=== PATIENT | female | born 1975 | race Caucasian/White ===

== ENCOUNTER 2022-07-25 19:11 | Emergency (ER) | payer BC, MEDICAID, SELFPAY ==
--- NOTE | ~2022-07-25 | XR_ITS ---
EXAMINATION: XR ankle RT min 3V, XR foot RT min 3V DATE: 07/25/2022 19:51 INDICATION: Anterior right ankle and dorsal and medial right foot pain post fall down stairs. TECHNIQUE: 1. Anteroposterior, mortise, additional oblique and lateral view of the right ankle were obtained. 2. Dorsoplantar, two oblique and lateral views of the right foot were obtained. COMPARISON: None. FINDINGS: Alignment of the right foot and ankle is normal. No fracture. Tiny heterotopic ossicle with corticate d margins without evident donor site is the tip the medial malleolus likely sequela of chronic deltoi d ligament sprain. Joint spaces are well maintained. No ankle joint effusion. Soft tissue swelling ab out the ankle greatest about the lateral malleolus. IMPRESSION: 1. No acute osseous abnormality. Reviewed, dictated and finalized at location A. IMPRESSION: 1. No acute osseous abnormality.
[2022-07-25 19:23] VITALS: BP 157/102; PULSE 98; RESP 16; TEMP 36.4; O2SAT 99
--- NOTE | 2022-07-25 19:52 | PC.NURSE ---
PT DECLINED WHEELCHAIR TO RADIOLOGY
--- NOTE | 2022-07-25 20:10 | ED.LOWEXIN ---
HPI - Extremity Injury (Lower) General Chief Complaint: Extremity Injury, Lower Stated Complaint: Fall Injury/Right Foot Injury Time Seen by Provider: 07/25/22 20:00 Source: patient, RN notes reviewed and old records reviewed Mode of arrival: ambulatory Limitations: no limitations History of Present Illness HPI Narrative: 46 year old female who presents to [facility] care with complaints of rolling right foot when going up steps and then falling foreward last night. Patient reports that she has pain to bilateral ankle region and also to medial aspect of her right foot.Patient has swelling to the medial aspect of her right foot and also lateral ankle region. Patient states that pain is sharp and dull rates her pain 5/10.described as sharp and dull with patient reporting that she has been taking Ibuprofen, elevating her right ankle and foot and applying ice. MD complaint: ankle injury, foot injury and fall Onset (ago): day(s) (last evening) Injury: Right: ankle and foot Severity scale (1-10): 5 Treatments prior to arrival: cold therapy, NSAIDS and other (elevation) Related Data Home Medications Medication Instructions Recorded Confirmed No Home Medications 07/25/22 07/25/22 Allergies Allergy/AdvReac Type Severity Reaction Status Date / Time Penicillins Allergy Unknown Unknown Verified 07/25/22 19:37 Sulfa (Sulfonamide Allergy Unknown Redness of Verified 07/25/22 19:37 Antibiotics) Skin Review of Systems Review of Systems: CONSTITUTIONAL: Denies fever, chills, or sweats. EYES: Denies visual changes, redness, or discharge. ENT: Denies rhinorrhea, congestion, sore throat, or otalgia. CARDIOVASCULAR: Denies chest pain, palpitations, or edema. RESPIRATORY: Denies cough or dyspnea. GASTROINTESTINAL: Denies abdominal pain, nausea, vomiting, or diarrhea. GENITOURINARY: Denies dysuria or hematuria. SKIN: Denies rash or itching. MUSCULOSKELETAL: Denies back pain, positive for right foot and ankle joint pain, or myalgia. NEUROLOGIC: Denies headache, numbness, or weakness. PSYCHIATRIC: positive for anxiety or depression. All systems reviewed & are unremarkable except as noted in HPI and below PMFSH Past Medical History Medical History (Updated 07/29/22 @ 08:54 by Kinga Negron NP) Asthma MVP (mitral valve prolapse) Surgical History Surgical History (Updated 07/29/22 @ 08:56 by Kinga Negron NP) History of cholecystectomy History of tonsillectomy Social History Social History (Updated 07/29/22 @ 08:56 by Kinga Negron NP) Smoking status: Never smoker Alcohol intake: unknown Substance use type: does not use Living arrangements: with family Gender identity (if verbalized by the patient): Female Comments At time of signature agree with nursing documentation of past medical, surgical, social and family history, There is no relevant family history pertinent to presenting complaint. Exam Narrative: GENERAL: Well-appearing, well-nourished, and in no acute distress. HEAD: Normocephalic, atraumatic. EYES: PERRLA and EOMI. ENT: Nares clear, no rhinorrhea or epistaxis. Mucous membranes moist.RM's normal with fgood light reflex, throat pink with no lesions or swelling, no tonsils present NECK: Supple.no lymphadenopathy CHEST: Clear to auscultation. No respiratory distress.SAO2 99% on room air HEART: Regular rate and rhythm. No murmur heard. Normal peripheral pulses. ABDOMEN: Soft, nontender, nondistended, normal active bowel sounds. EXTREMITIES: Normal range of motion. No edema.Exception noted to pain to medial aspect of right foot and ankle with some swelling noted SKIN: Warm, dry, no rash. NEURO: No focal deficits. Alert and oriented x3. Course Course Level of Care: Express Care Visit Vital Signs Vital signs: Vital Signs Temperature 36.4 C 07/25/22 19:23 Pulse Rate 98 07/25/22 19:23 Respiratory Rate 16 07/25/22 19:23 Blood Pressure 157/102 H 07/25/22 19:23 Pulse Oximetry 99 09
== END 2022-07-25 20:25 | disposition home or self-care (01) ==
PROVIDERS: Emergency Provider Registered Nurse
DX: S93.401A Sprain of unspecified ligament of right ankle, initial encounter (principal); T14.90XA Injury, unspecified, initial encounter
CPT/HCPCS: 73610; 73630; 99213; G0463

== ENCOUNTER 2023-02-12 18:14 | Emergency (ER) | payer BC, MEDICAID, SELFPAY ==
[2023-02-12 18:20] VITALS: BP 156/107; PULSE 104; RESP 20; TEMP 37.2; O2SAT 100
--- NOTE | 2023-02-12 18:49 | ED.URI ---
HPI - URI/Sore Throat General Chief Complaint: Upper Respiratory Infection Stated Complaint: ear nose throat chest congestion Time Seen by Provider: 02/12/23 18:49 Source: patient, RN notes reviewed and old records reviewed Mode of arrival: ambulatory Limitations: no limitations History of Present Illness HPI Narrative: 47-year-old female who presents to [facility] with complaints of cough with congestion sore throat, nasal congestion for the past 3-4 days. Patient reports that she has been taking Claritin and OTC Ibuprofen for her symptoms, is unsure of any fevers,denies any chills or sweats. Patient reported that she has been coughing up some greenish tinged phlegm and some yellow nasal drainage. Patient reports history of asthma but does not have inhaler at home at this time,does not have PCP. Patient reports that she has had COVID vaccinations and she did take COVID home test which was negative. Patient reports that she has not had flu shot. 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 MD elicited complaint: cough, sore throat, rhinorrhea and nasal congestion Pertinent past history: asthma Onset (ago): day(s) (3-4) Description of mucous: yellow and green Able to tolerate fluids by mouth: Yes Treatments prior to arrival: other (Claritin and Ibuprofen) Related Data Home Medications Medication Instructions Recorded Confirmed albuterol sulfate 90 mcg/actuation inhalation 02/12/23 aerosol inhaler beclomethasone dipropionate 80 inhalation 02/12/23 mcg/actuation HFA breath activated aerosol (Qvar RediHaler) Allergies Allergy/AdvReac Type Severity Reaction Status Date / Time Penicillins Allergy Unknown Unknown Verified 07/25/22 19:37 Sulfa (Sulfonamide Allergy Unknown Redness of Verified 07/25/22 19:37 Antibiotics) Skin Review of Systems Review of Systems: CONSTITUTIONAL: Denies malaise, chills, sweats, or fever. EYES: Denies visual changes, redness, or discharge. ENT: Reports rhinorrhea, congestion, sinus pain, otalgia and sore throat. CARDIOVASCULAR: Denies chest pain, palpitations, or edema. RESPIRATORY: Reports cough.? Denies acute dyspnea. GASTROINTESTINAL: Denies abdominal pain, nausea, vomiting, diarrhea SKIN: Denies rash or itching. MUSCULOSKELETAL: Denies myalgia. NEUROLOGIC: Denies headache. All systems reviewed & are unremarkable except as noted in HPI and below PMFSH Past Medical History Medical History (Updated 02/12/23 @ 19:27 by Kinga Negron NP) Asthma MVP (mitral valve prolapse) Surgical History Surgical History (Updated 02/12/23 @ 19:27 by Kinga Negron NP) History of cholecystectomy History of endometrial ablation History of tonsillectomy Social History Social History (Updated 07/29/22 @ 08:56 by Kinga Negron NP) Smoking status: Never smoker Alcohol intake: unknown Substance use type: does not use Living arrangements: with family Gender identity (if verbalized by the patient): Female Comments At time of signature, agree with nursing past medical, surgical, social and family history. There is no relevant family history pertinent to the presenting complaint Exam Narrative: GENERAL: Well-appearing, well-nourished, and in no acute distress. HEAD: Normocephalic EYES: PERRLA, conjunctivae clear ENT: Nares clear, turbinates edematous and erythematous, clear discharge. Mucous membranes moist. TM pearly garcia with dull light reflex bilaterally; no tragal tenderness. Oropharynx erythematous without lesions. Tonsils not present and throat without exudate, no drooling, no hoarseness, no trismus, uvula midline. NECK: Supple. lymphadenopathy CHEST: Clear to auscultation, breath sounds equal. No wheezing, rhonchi, rales, or stridor. No respiratory distress, speaks in full sentences.harsh cough SAO2 100% on room air HEART: Regular rate and rhythm. No murmur heard. SKIN: Warm, dry, no rash.
== END 2023-02-12 19:12 | disposition home or self-care (01) ==
PROVIDERS: Emergency Provider Registered Nurse
DX: J06.9 Acute upper respiratory infection, unspecified (principal); R05.9 Cough, unspecified; J45.909 Unspecified asthma, uncomplicated; I34.1 Nonrheumatic mitral (valve) prolapse
CPT/HCPCS: 99213; G0463

== ENCOUNTER 2023-08-13 09:06 | Emergency (ER) | payer OTHER, BC, MEDICAID, SELFPAY ==
--- NOTE | 2023-08-13 09:11 | ED.URI ---
HPI - URI/Sore Throat General Chief Complaint: Upper Respiratory Infection Stated Complaint: congestion/cough Source: patient and RN notes reviewed Mode of arrival: ambulatory Limitations: no limitations History of Present Illness HPI Narrative: Patient is a 47-year-old female who presents to the [facility] with complaints of ongoing sinus pain and pressure along with nasal congestion for the past couple weeks. Patient states that she was seen for the symptoms by an urgent care and was prescribed a Z-Jeramie. She states that she has completed the Z-Jeramie without improvement of her symptoms. Patient also reports chest congestion. She has a frequent productive cough with yellow sputum. She denies chest pain or shortness of breath. Denies known fevers. She reports intermittent sore throat and generalized body aches. 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 Related Data Allergies Allergy/AdvReac Type Severity Reaction Status Date / Time Penicillins Allergy Unknown Unknown Verified 08/13/23 09:40 Sulfa (Sulfonamide Allergy Unknown Redness of Verified 08/13/23 09:40 Antibiotics) Skin Review of Systems Review of Systems: CONSTITUTIONAL: Denies fever, chills, or sweats. EYES: Denies visual changes, redness, or discharge. ENT: Denies otalgia but reports sore throat. Reports sinus pain and nasal congestion CARDIOVASCULAR: Denies chest pain, palpitations, or edema. RESPIRATORY: Reports cough but denies dyspnea. GASTROINTESTINAL: Denies abdominal pain, nausea, vomiting, or diarrhea. GENITOURINARY: Denies dysuria or hematuria. SKIN: Denies rash or itching. MUSCULOSKELETAL: Denies back pain, joint pain, or myalgia. NEUROLOGIC: Denies headache, numbness, or weakness. Pertinent positives per HPI. [facility] Past Medical History Medical History Asthma MVP (mitral valve prolapse) Surgical History Surgical History History of cholecystectomy History of endometrial ablation History of tonsillectomy Social History Social History Smoking status: Never smoker Alcohol intake: unknown Substance use type: does not use Living arrangements: with family Gender identity (if verbalized by the patient): Female Comments At the time of my signature, I reviewed and agree with the nursing past medical, surgical, social, and family history. There is no relevant family history pertinent to the patient complaint. Exam Narrative: GENERAL: This is a well-nourished, well-developed patient, in no apparent distress. HEAD: normocephalic, atraumatic. EYES: Sclera clear/white. Vision is grossly intact. EARS: External ears normal. Hearing grossly intact. NOSE: External nose normal. Moderate congestion. Sinus tenderness. THROAT: Mucous membranes moist, Oropharyngeal erythema without exudate or ulceration. NECK: Neck supple, non-tender without lymphadenopathy, masses or thyromegaly. CARDIOVASCULAR: Regular rate and rhythm without murmurs, gallops, or rubs. RESPIRATORY: Clear to auscultation. Breath sounds equal bilaterally. No wheezes, rales, or rhonchi. GASTROINTESTINAL: Abdomen soft, non-tender, nondistended. Bowel sounds are active. No hepato-splenomegaly, or palpable masses. No guarding. SKIN: warm, intact with no suspicious lesions or rash, good texture and turgor. NEURO: awake, alert, and oriented to person, place and time. There were no obvious focal neurologic abnormalities. Course Course Level of Care: Express Care Visit Vital Signs Vital signs: Vital Signs Temperature 97.5 F L 08/13/23 09:36 Pulse Rate 85 08/13/23 09:36 Respiratory Rate 16 08/13/23 09:36 Blood Pressure 155/101 H 08/13/23 09:36 Pulse Oximetry 99 08/13/23 09:36 Oxygen Delivery Room Air 08/13/23 09:36 Temperature 97.5 F L 07/28
[2023-08-13 09:36] VITALS: BP 155/101; PULSE 85; RESP 16; TEMP 36.4; O2SAT 99
== END 2023-08-13 10:17 | disposition home or self-care (01) ==
PROVIDERS: Emergency Provider Nurse Practitioner; PCP Family Medicine
DX: J02.0 Streptococcal pharyngitis (principal); Z20.822 Contact with and (suspected) exposure to COVID-19
CPT/HCPCS: 87426; 87880; 99213; C9803; G0463